=== PATIENT | female | born 1935 | race Caucasian/White ===

== ENCOUNTER 2023-09-07 06:08 | Day surgery (SDC) | payer MEDICARE ==
[2023-09-06 12:10] VITALS: BMI 30.4
[~2023-09-07 06:08] MED LIST: EPINEPHrine 0.3 MG in Ophthalmic Irrigation Solution 500 ML IRR SCH
[2023-09-07] MEDS ORDERED: PHENYLephrine 2.5% Ophth Soln 15 ml Bottle ONE (06:29)
[2023-09-07] MEDS ORDERED: Cyclopentolate 1% Opth Drop 2 ML BOT ONE (06:30)
[2023-09-07] MEDS ORDERED: fentaNYL 50 mcg/mL 1 mL Vial ONE (06:51)
[2023-09-07] MEDS ORDERED: Midazolam HCl 2 mg/2 ml Vial ONE (06:51)
[2023-09-07] MEDS ORDERED: Bupivacaine 0.75% 10 ML VIAL ONE (07:11)
[2023-09-07] MEDS ORDERED: Lidocaine 1% PF 5 ML VIAL ONE (07:11)
[2023-09-07] MEDS ORDERED: Lidocaine 4% PF 5 ML AMP ONE (07:11)
[2023-09-07] MEDS ORDERED: Maxitrol 0.1% Opth Oint 3.5 GM TUBE ONE (07:11)
[2023-09-07] MEDS ORDERED: PROPOFOL 200 MG/20 ML VIAL ONE (07:11)
[2023-09-07] MEDS ORDERED: CEFAZOLIN 1 GM VIAL ONE (07:11)
[2023-09-07] MEDS ORDERED: Triamcinolone 40 MG/ML VIAL ONE (07:11)
== END 2023-09-07 08:14 | disposition home or self-care (01) ==
LOC: SDC 06:08
PROVIDERS: ATTEND Ophthalmology Retina Specialist
PROC: 08T53ZZ Resection of Left Vitreous, Percutaneous Approach (ICD-10-PCS; principal; 2023-09-07)
DX: H43.12 Vitreous hemorrhage, left eye (principal)
CPT/HCPCS: 67041; J3010; J0171; J0690; J2250; J2704; J3301; J3490